=== PATIENT | male | born 1990 | race Caucasian/White ===

== ENCOUNTER 2016-09-22 21:54 | Observation (INO) | payer OTHER ==
[~2016-09-22] VITALS: Ht 175.3 cm; Wt 56.7 kg
[2016-09-22 22:03] VITALS: BP 166/102; PULSE 69; RESP 16; O2SAT 98
[2016-09-22] MEDS ORDERED: Ondansetron 2 mg/mL 2 mL Inj ONE (23:08)
[2016-09-22 23:15] VITALS: BP 128/70; PULSE 67; RESP 18; O2SAT 97
--- NOTE | 2016-09-22 23:17 | ED.REPORT ---
HPI-Dental/Mouth Prob Date of Service Sep 22, 2016 ED Provider: Dr. Michel Murphy M.D. The patient is a healthy 26 year old male who presents to the ED accompanied by his family with diffuse dental pain onset three days ago. The pain is exacerbated with movement of his jaw. Associated symptoms include facial swelling, neck swelling, and nausea. The patient denies shortness of breath or other symptoms. He had a left lower molar pulled one month ago. The patient was seen at [facility] since onset and was prescribed an antibiotic and Vicodin for a dental infection. His symptoms have worsened since. Nursing Notes Stated Complaint: EXTREME JAW AND DENTAL PAIN Chief Complaint: Dental Nursing Notes Reviewed: Yes Allergies: Coded Allergies: No Known Allergies (Unverified , 09/23/16) General Time Seen by MD: 23:17 Chief Complaint Other (Dental Pain) Hx Obtained From: Patient, Other family... Arrived By: Walk-in Onset Occurred: 3 days ago Symptom Duration: Since onset Quality: Painful (Diffuse dental pain) Severity: Current: Moderate Severity: Maximum: Moderate Exacerbated by: Movement (Of jaw) Pertinent Negative: Relieved by nothing Recent Healthcare: Recent doctor visit Past Medical History Past Medical History None reported Past Surgical History None reported Smoking History Unknown if Ever Smoker Social History Other Social History: Good social support Ambulatory Status Independent Review of Systems Review of Systems Note: + Diffuse dental pain, facial swelling, neck swelling Constitutional: Denies: Fever Respiratory: Denies: Non-productive cough, Shortness of breath GI: Reports: Nausea, Denies: Diarrhea, Vomiting Complete sys rev & neg: except as marked. Physical Exam Physical Exam Notes: Initial Vital Signs Vital Signs (First) Date Time Temp Pulse Resp B/P Pulse Ox O2 Delivery O2 Flow Rate FiO2 09/22/16 22:03 36.9 69 16 166/102 98 Room Air Initial VS: Reviewed Head / Eyes: Atraumatic, Normocephalic Respiratory: Breath sounds normal, Clear to auscultation, No respiratory distress Cardiovascular: Regular rate & rhythm, Heart sounds normal Skin: Warm, Dry, No cyanosis Neurologic: Alert, Oriented, Nonfocal Psychiatric: Mood/affect normal, Behavior normal, Normal thought content ENT: Airway patent Mouth: Positive: Pooling of secretions Bilateral facial swelling, tenderness, induration up around line of jaw to ears Tender, indurated area on anterior chin No crepitus, fluctuance Unable to open mouth fully - only up to 1cm excursion Strangled voice Neck: Supple, Full range of motion, No adenopathy General/Constitutional: Awake, Alert Interpretation & Diagnostics CT NECK SOFT TISSUE W/ IV CONTRAST: CONCLUSION: Periapical lucency about the right and left medial incisors; 2 cm lobulated ring-enhancing fluid collection just anterior to the mandibular symphysis, indicating a periodontal abscess, with extensive surrounding fat stranding with overlying skin thickening. No extension of the abscess into the tongue or submandibular space identified. Chronic left maxillary sinusitis. Findings discussed with Dr. Murphy at 09/23/2016 1:07:14 AM PDT Report transmitted to the ED by radiologist Miguel Duran M.D. at 09/23/2016 - 1:07:18 AM PDT Lab Results Interpretation Result Diagram: 09/23/16 0549 09/23/16 0549 Test 09/22/16 01:19 09/22/16 23:30 Urine Color Yellow (YELLOW) Urine Appearance Clear (CLEAR,HAZY) Urine pH 6.5 (5.0-8.0) Urine Specific [place] 1.004 (1.003-1.035) Urine Protein Negativemg/dL (NEG,TRACE) Urine Glucose (UA) Negativemg/dL (NEGATIVE) Urine Ketones Negativemg/dL (NEGATIVE) Urine Occult Blood Trace (NEGATIVE) Urine Nitrite Negative (NEGATIVE) Urine Bilirubin Negative (NEGATIVE) Urine Urobilinogen Normalmg/dL (NORMAL) Urine Leukocyte Esterase Negative (NEGATIVE) Urine RBC 0-2/hpf (0-2) Urine WBC 0-5/hpf (0-5) Urine Epithelial Cells Occasional/hpf (NONE-MOD) Urine Crystals None seen (NONE SEEN) Urine Bacteria None/hpf (NONE-FEW) Urine Hyaline Casts None/lpf (NONE) Urine Granular Casts None seen (NONE SEEN) Urine Waxy Casts None seen (NONE SEEN) Urine Red Blood Cell Casts None seen (NONE SEEN) Urine White Blood Cell Casts None seen (NONE SEEN) Urine Mucus None seen (None Seen) Urine Trichomonas None seen (NONE SEEN) Urine Yeast None (NONE SEEN) Urinalysis Comment None Urine Culture Reflexed Not indicated Prothrombin Time 10.6sec (8.1-12.5) Prothromb Time International Ratio 0.99ratio Activated Partial Thromboplast Time 33.1sec (22.8-33.0) Phosphorus Level 4.3mg/dL (2.5-4.9) Magnesium Level 2.0mg/dL (1.6-2.6) Total Bilirubin 0.5mg/dL (0.0-1.2) Aspartate Amino Transf (AST/SGOT) 34U/L (0-50) Alanine Aminotransferase (ALT/SGPT) 34U/L (0-44) Alkaline Phosphatase 72U/L (25-150) Total Protein 7.6g/dL (6.4-8.4) Albumin 4.2g/dL (3.4-5.0) Procalcitonin 0.18ng/mL (0.00-0.08) Hold Rosen Top Tube Received (Received) X-Ray Chest Interpretation Chest Xray Interpretation: Negative View: Portable, 1 view Interpretation / Wet Read by: Wet read ED physician Re-Eval/Medical Decision Med Decision/Clinical Course Twenty 40 progressive pain and swelling with a dental abscess. Now his significant trismus and is unable to eat or drink can barely able open his mouth. This is improved after Decadron and IV antibiotics here. CT does not show anything within the ring of the mandible and no involvement of the floor the mouth or tongue. There is an odontogenic abscess anteriorly. The bit now observation status for ongoing steroids, IV clindamycin, and consider drainage. We will ultimately need extraction in the area. Re-Evaluation/Progress : Time of Eval: 01:06 Patient Status: Condition improved Re-Evaluation/Progress Note: Discussed with patient CT, x-ray, and lab results, diagnosis, and plan for admit. Patient agrees with plan for care and all questions were addressed. Consultation : Referral / Consult Name: Maria De Jesus Brooke DO Consulted With: Hospitalist Call Returned at: 01:40 Auto Heater Mechanic: Agrees with eval, Agrees with plan, Accepts admit Counseled Regarding: Diagnosis, Lab results, Need for admission Discharge & Departure Primary Impression: Dental abscess Disposition: ADMITTED TO HOSPITAL Discharge Condition All VS Reviewed: Yes Condition: Improved Referrals: Taurus Hernandez DO (PCP) Scribe Attestation Portions of this note were transcribed by Zelda De Dios. I, Dr. Murphy, personally performed the history, physical exam, and medical decision-making; I reviewed and confirmed the accuracy of the information in the transcribed note. Signed by: Norris Justin, 09/23/2016, 03:10 copies to: Taurus Hernandez Christopher W MD Sep 22, 2016 23:17 ZELDA DE DIOS Sep 22, 2016 23:25 2.0mg/dL (1.6-2.6) Total Bilirubin 0.5mg/dL (0.0-1.2) Aspartate Amino Transf (AST/SGOT) 34U/L (0-50) Alanine Aminotransferase (ALT/SGPT) 34U/L (0-44) Alkaline Phosphatase 72U/L (25-150) Total Protein 7.6g/dL (6.4-8.4) Albumin 4.2g/dL (3.4-5.0) Procalcitonin 0.18ng/mL (0.00-0.08) Hold Rosen Top Tube Received (Received) X-Ray Chest Interpretation Chest Xray Interpretation: Negative View: Portable, 1 view Interpretation / Wet Read by: Wet read ED physician Re-Eval/Medical Decision Re-Evaluation/Progress : Time of Eval: 01:06 Patient Status: Condition improved Re-Evaluation/Progress Note: Discussed with patient CT, x-ray, and lab results, diagnosis, and plan for admit. Patient agrees with plan for care and all questions were addressed. Consultation : Referral / Consult Name: Maria De Jesus Brooke DO Consulted With: Hospitalist Call Returned at: 01:40 Auto Heater Mechanic: Agrees with eval, Agrees with plan, Accepts admit Counseled Regarding: Diagnosis, Lab results, Need for admission Discharge & Departure Primary Impression: Dental abscess Disposition: ADMITTED TO HOSPITAL Discharge Condition All VS Reviewed: Yes Condition: Improved Referrals: Taurus Hernandez DO (PCP) Norris Attestation Portions of this note were transcribed by Zelda De Dios. I, Dr. Murphy, personally performed the history, physical exam, and medical decision-making; I reviewed and confirmed the accuracy of the information in the transcribed note. Signed by: Norris Justin, 09/23/2016, 03:10 copies to: Taurus Hernandez Christopher W MD Sep 22, 2016 23:17 ZELDA DE DIOS Sep 22, 2016 23:25
[2016-09-22] MEDS ORDERED: Dexamethasone 10 mg/mL Inj IVPUSH ONE (23:25)
[2016-09-22] MEDS ORDERED: Piperacillin-Tazo 3.375 Gm Inj 3.375 GM in Dextrose 5% Minibag Plus 50 ML IV ONE (23:25)
[2016-09-22] MEDS ORDERED: Ondansetron 2 mg/mL 2 mL Inj IVPUSH ONE (23:25)
[2016-09-22 23:30] VITALS: BP 137/72; PULSE 69; RESP 16; O2SAT 99
[2016-09-22] MEDS ORDERED: HYDROmorphone 1 mg/mL Inj IVPUSH PRN (23:55)
[2016-09-23] VITALS (7 sets, daily range): BP systolic 102–119; BP diastolic 44–65; PULSE 58–78; RESP 12–17; O2SAT 96–98
[2016-09-23] LABS: INR 0.99 ratio
[2016-09-23] MEDS: 0.9% Sodium Chloride 1,000 ML IV PRN ×2 (00:04→00:17)
[2016-09-23 00:08] LABS: BASOPHILS % (AUTO) 0.2 % (0-3); EOSINOPHILS % (AUTO) 1.7 % (0-5); MONOCYTES % (AUTO) 11.9 % (4-12); Mean Corpuscular Hemoglobin 30.8 pg (27.0-35.0); Mean Corpuscular Volume 90 fL (81-100); NEUTROPHILS % (AUTO) 75.6 % (40-74); Platelet Count 218 bil/L (150-400)
[2016-09-23 00:10] LABS: Phosphorus 4.3 mg/dL (2.5-4.9)
[2016-09-23 01:32] LABS: APPEARANCE,URINE CLEAR (CLEAR,HAZY); COLOR,URINE YELLOW (YELLOW)
[2016-09-23 01:33] LABS: OCCULT BLOOD,URINE TRACE (NEGATIVE); PH,URINE 6.5 (5.0-8.0); UROBILINOGEN,URINE NORMAL (NORMAL)
[2016-09-23] MEDS ORDERED: Lactated Ringer's 1,000 ML IV SCH (02:39)
[2016-09-23] MEDS ORDERED: Ondansetron 2 mg/mL 2 mL Inj IVPUSH PRN (02:40)
--- NOTE | 2016-09-23 03:00 | NUR ---
Admit Received report from Joaquin OROPEZA RN @ 0120 patient just now arrived floor via RN accompanied w/girlfriend, admit Dx dental abscess , per report he had had tooth extraction a month ago and developed abscess which he was on abx for, came to ED d/t unrelieved pain from Vicodin, upon access cannot visualize abscess and patient states "felt something pop in mouth and pressure and pain relieved no other pertinent medical Hx or issues.Admit complete w/exception of med rec which was only Vicodin, Amoxicillin, and one can't name other takes no RX prior.
[2016-09-23] MEDS ORDERED: Dexamethasone 4 mg/mL Inj IVPUSH ONE (04:30)
--- NOTE | 2016-09-23 05:10 | PCM.HPMED ---
Subjective Date of Service Sep 23, 2016 Primary Provider: Admitting Physician: Maria De Jesus Brooke DO Primary Care Physician: Taurus Hernandez DO Attending Physician: Maria De Jesus Brooke DO Admit Status: From the Emergency Department Chief Complaint: dental pain History of Present Illness: 26yoM with minimal past medical history admitted with concern for failure of outpatient treatment of dental abscess. Patient states the he began having difficulties with his mouth on Tuesday 09/19. He was seen by his outpatient provider who prescribed amoxicillin and vicodin and sent patient home. In the subsequent days Mr. Reis endorses chills, worsening pain and discomfort in his mouth with increasing swelling and difficulties swallowing. Immediately following presentation to [facility] patient endorses drainage from abscess stating "it popped open". ENT was contacted following hospitalist notification for admission. Review of Systems: complete review of systems obtained. positive as per hpi otherwise negative. Allergies Coded Allergies: No Known Allergies (Unverified , 09/23/16) Home Medications amoxicillin vicodin ibuprofen PMH None Surgical History None Family History Uncle with recurrent dental abscess Mother with MS Father obese Social History Hx Alcohol Use: Yes Alcoholic Drinks Per Day: occasional Hx Substance Use: No Smoking Status: Unknown if Ever Smoker Exam Vital Signs Vital Sign - Last Date Time Temp Pulse Resp B/P Pulse Ox O2 Delivery O2 Flow Rate FiO2 09/23/16 03:30 36.5 62 17 112/62 96 Room Air Intake and Output 09/22/16 09/22/16 09/23/16 Cumulative From/Thru 15:00 23:00 07:00 09/22/16 22:03 - 09/23/16 03:08 Intake Total 2000 ml 2000 ml Balance 2000 ml 2000 ml Intake IV Total 2000 ml 2000 ml Exam General: Alert, Oriented X3, Cooperative, No acute Distress Eyes: PERRLA, Scleral Anicteric Mouth: Mouth Normal, Mucous Membranes Moist/Filer, left edema submandibular and surrounding chin, unable to visualize area of abscess d/t swelling Neck: Supple, no Thyromegaly, trachea central. Chest & Lungs: clear to auscultation bilateral, no wheezes, rales, rhonchi, good resp effort Cardiovascular: Normal S1, Normal S2, No Rubs/Gallops/murmur, regular rate and rhythm(No JVD, no peripheral edema) Pulses: Radial (present and equal), Dorsalis Pedi (present and equal) Abdomen: Soft, Non-tender, Non-distended, Normoactive bowel tones. Musculoskeletal: Unremarkable. Normal range of motion, no swollen or erythematous joints, mouth as above Extremities: No edema, no cyanosis, no clubbing. Skin: No rashes. Warm and dry, no erythematous areas Neurological: Grossly neurologically intact, has generalized weakness, Normal Speech, Sensation Intact Lymphatic: Lymph nodes Axillary not palpable. Lab and Diagnostics Result Diagram: 09/22/16232909/22/162329 X-Rays, CTs and MRIs CT NECK SOFT TISSUE W/ IV CONTRAST: CONCLUSION: Periapical lucency about the right and left medial incisors; 2 cm lobulated ring-enhancing fluid collection just anterior to the mandibular symphysis, indicating a periodontal abscess, with extensive surrounding fat stranding with overlying skin thickening. No extension of the abscess into the tongue or submandibular space identified. Chronic left maxillary sinusitis. Findings discussed with Dr. Murphy at 09/23/2016 1:07:14 AM PDT Report transmitted to the ED by radiologist Miguel Duran M.D. at 09/23/2016 - 1:07:18 AM PDT Assessment & Plan 26yoM with minimal past medical history admitted with concern for failure of outpatient treatment of dental abscess. Dental abscess, acute, POA -patient not meeting SIRs / sepsis criteria -patient was given amoxicillin as an outpatient with worsening symptoms -CT scan with findings of dental abscess -piperacillin-tazobactam and dexamethasone given in ED with some improvement -continue dexamethasone 4mg TID, start clindamycin -ENT consulted by ED following admission, AM team to confirm consultation Leukocytosis, acute, POA -secondary to dental abscess -treatment as above Pain Evaluation: Adequate Pain Control GI Prophylaxis: Not indicated VTE Prophylaxis: Other (ambulate TID) Resuscitation Status: CPR: Attempt Resuscitation Maria De Jesus Brooke DO Sep 23, 2016 05:10
[2016-09-23] MEDS ORDERED: Polyethylene Glycol (PEG) 17 Gm Powder PO PRN (05:15)
[2016-09-23 06:22] LABS: BASOPHILS % (AUTO) 0.1 % (0-3); EOSINOPHILS % (AUTO) 0.2 % (0-5); Mean Corpuscular Volume 88.2 fL (81-100); NEUTROPHILS % (AUTO) 91.9 % (40-74); Platelet Count 203 bil/L (150-400)
--- NOTE | 2016-09-23 06:29 | DRSVH ---
PROCEDURE: CT NECK SOFT TISSUES WITH CONTRAST ([id number]) INDICATIONS: 26 year-old male with lower jaw swelling for 5 days. TECHNIQUE: After the administration of intravenous contrast, 3.0 mm axial sections acquired from the sella to th e aortic arch. Additional oblique axial 3.0 mm sections acquired through the pharynx. 3 mm thick co kojo reformats were generated. For radiation dose reduction, the following was used: automated exp osure control. COMPARISON: None. FINDINGS: Preliminary interpretation rendered by [facility]. Image quality: Metallic streak artifact from dental fillings obscures adjacent bony and soft tissues. Lymph nodes: Bilateral prominent submandibular lymph nodes are present. More inferiorly, no enlarged jugular chain lymph nodes identified. Vessels: Visualized vasculature appears patent. Neck spaces: There is right greater than left enlargement of the tonsillar pillars with scattered in ternal gas. No rim-enhancing fluid collections to suggest emmy tonsillar abscess. The vocal cords, f alse vocal cords, pyriform sinuses, epiglottis, vallecula, and tongue base all appear normal. On ser ies 2 image 33, an irregular rim-enhancing fluid collection is situated superficial to the right ante rior paramedian mandible, with intraosseous extension. There is significant surrounding inflammatory fat stranding. No soft tissue gas. Glands: The parotid and submandibular glands appear normal. Thyroid gland is normal in size. Miscellaneous: Visualized brain and orbits appear normal. Lung apices appear clear. Superficial so ft tissues appear normal. Bones: An os odontoideum is present. There is asymmetric opacification of the left maxillary sinus, s tatus post remote maxillary sinusotomy. Other visualized sinuses and mastoids appear clear. IMPRESSION: 1. Findings consistent with 1.8 x 1.7 cm right anterior paramedian periodontal abscess. 2. Right greater than left tonsillar pillar enlargement with internal soft tissue gas, consistent wit h infectious process. No emmy tonsillar abscess at this time. 3. Bilateral prominent submandibular lymph nodes, presumably secondary to periodontal infectious proc ess. 4. 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 5. Findings consistent with chronic left maxillary sinusitis, status post remote maxillary sinusotomy . Os odontoideum finding was not noted on preliminary [facility] report. Dictated by: Warren Jones M.D. on 09/23/2016 at 6:11 Approved by: Warren Jones M.D. on 09/23/2016 at 6:27
--- NOTE | 2016-09-23 07:26 | DRSVH ---
PROCEDURE: X-RAY CHEST ONE VIEW, PORTABLE ([id number]) INDICATIONS: 26-year-old male with extreme joint pain and swelling. TECHNIQUE: One view of the chest was acquired. COMPARISON: None. FINDINGS: Surgical changes and devices: None. Lungs and pleura: No pleural effusions or pneumothorax. Lungs are clear. Mediastinum: Mediastinal contours appear normal. No pneumomediastinum. Heart size is normal. Bones and chest wall: No suspicious bony lesions. Overlying soft tissues appear unremarkable. IMPRESSION: Normal single view chest. Dictated by: Warren Jones M.D. on 09/23/2016 at 7:23 Approved by: Warren Jones M.D. on 09/23/2016 at 7:24
[2016-09-23] MEDS ORDERED: Clindamycin Inj 600 MG in IV Premix 1 EACH IV SCH (08:30)
--- NOTE | 2016-09-23 12:06 | NUR ---
Status Pt has not complained of pain or nausea this shift and is resting comfortably in bed. States that last night he felt a "pop" in his mouth and could taste drainage. Pain subsided. Able to eat and drink w/o issue this am. Up ad dallin. Will continue to monitor.
--- NOTE | 2016-09-23 12:22 | PCM.DIMED ---
Discharge Instructions Date of Service Sep 23, 2016 Dates of Hospitalization Sep 23, 2016 at 01:24 Discharge Diagnosis Discharge Diagnosis dental abscess Diet Discharge Diet: No restrictions Activity Discharge Activity: No restrictions Call your provider Call your provider for: Fever or Chills Patient Instructions Patient Instructions you need to see a dentist ALONDRA for definitive follow up, not clear if this is root canal vs extraction or other. Maxillofacial/oral surgeon surgery not available @ [facility]. If this reccurs consider [facility] (I would call to see if maxillofacial/oral surgeon is available/production counter. Follow-up plan stay on antibiotics and antiinflammatory (clinda/dexamethasone) till seen by dentist/maxillo facial surgeon Dylon Davis MD Sep 23, 2016 12:22
[2016-09-23] MEDS ORDERED: CLIN-78 PO (12:29)
[2016-09-23] MEDS ORDERED: LACT1TAB19 PO (12:29)
[2016-09-23] MEDS ORDERED: DXM4T PO (12:29)
[2016-09-23] MEDS ORDERED: IBUP-1827 PO (12:29)
[2016-09-23] MEDS ORDERED: CLIN-77 PO (12:29)
[2016-09-23] MEDS ORDERED: HYDR-4003 PO (12:29)
[2016-09-23] MEDS ORDERED: OMEP40CA36 PO (12:29)
--- NOTE | 2016-09-23 12:46 | NUR ---
Social Work: Screening / D/C Data: Pt is a 26 y/o male admitted for dental abscess. Pt's PCP is Dr Hernandez, pt's insurance is [employer]. Readmit score not listed. Pt discussed in rounds. D/C orders are in. requested [employer] CREAM VENDOR set up dental appointment for pt at [facility]. [facility] does not have any appointments available next week but states pt can walk in M-F starting at 7:30am for any no shows. Appointment made for August, at 1:45pm at the [facility]. RN placed info in pt's d/c notes. No further d/c planning needs at this time. ICE CREAM VENDOR will continue to follow if needs arise. Assessment: Pt who is independent at baseline. Plan: Pt will d/c home via POV today. Appointment at [facility] 09/27 at 1:45pm. No further d/c planning needs at this time. ICE CREAM VENDOR will continue to follow if needs arise. KARINA Curiel
--- NOTE | 2016-09-23 13:25 | NUR ---
Discharge Pt discharged ambulatory with girlfriend and mom at 1310. All discharge paperwork and instructions reviewed. Pt verbalized understanding of all new medications and when/how to take. Verbalized understanding of appointment information with jaimee colvinett 09/27. All belongings with pt on d/c. Pt stable and w/o reports of any pain.
--- NOTE | 2016-09-23 16:17 | PCM.DC.MED ---
Discharge Summary Date of Service Sep 23, 2016 Dates of Hospitalization Date of Hospital Admission Sep 23, 2016 at 01:24 Date of Discharge: Sep 23, 2016 Providers: Admitting Physician: Eagle Davis MD Primary Care Physician: Taurus Hernandez DO Attending Physician: Eagle Davis MD Diagnosis at Time of Discharge Diagnosis at Time of Discharge dental abscess Consultations None Procedures XRay, CTs & MRIs CT NECK SOFT TISSUE W/ IV CONTRAST: CONCLUSION: Periapical lucency about the right and left medial incisors; 2 cm lobulated ring-enhancing fluid collection just anterior to the mandibular symphysis, indicating a periodontal abscess, with extensive surrounding fat stranding with overlying skin thickening. No extension of the abscess into the tongue or submandibular space identified. Chronic left maxillary sinusitis. Findings discussed with Dr. Murphy at 09/23/2016 1:07:14 AM PDT Report transmitted to the ED by radiologist Miguel Duran M.D. at 09/23/2016 - 1:07:18 AM PDT Brief History 26yoM with minimal past medical history admitted with concern for failure of outpatient treatment of dental abscess. Patient states the he began having difficulties with his mouth on Tuesday 09/19. He was seen by his outpatient provider who prescribed amoxicillin and vicodin and sent patient home. In the subsequent days Mr. Reis endorses chills, worsening pain and discomfort in his mouth with increasing swelling and difficulties swallowing. Immediately following presentation to [facility] patient endorses drainage from abscess stating "it popped open". ENT was contacted following hospitalist notification for admission. Hospital Course 26yoM with minimal past medical history admitted with concern for failure of outpatient treatment of dental abscess. Dental abscess, acute, POA -continue dexamethasone 4mg TID, start clindamycin -Spoke to on-call ENT he had not heard of this patient. We discussed the situation and given that there is no abscess to drain as it seems to have drained itself there is not much more to be done and patient requires either a dentist or oral surgeon to provide definitive care. Patient is eating and drinking so I put the patient on oral clindamycin and dexamethasone renewed his ibuprofen and Vicodin, he was advised he could go to [facility] for walk-in 7:30 AM 09/25 he has one scheduled in [place] on Wednesday 09/27. Patient feels that this is a reasonable plan so were discharging him. He is able to eat and drink his swallow was not apparent and the bulk of his abscess seems to have drained itself according to him. Leukocytosis, acute, POA, WBC 13.4 stable not indication to keep the patient in the hospital. -secondary to dental abscess -treatment as above Exam Vital Signs (Last) Date Time Temp Pulse Resp B/P Pulse Ox O2 Delivery O2 Flow Rate FiO2 09/23/16 12:10 36.5 58 12 110/62 98 Room Air Exam General: Alert, Oriented X3, Cooperative, No acute Distress Eyes: Open, conjunctivae clear, pupils equal Mouth: Mouth Normal, Mucous Membranes Moist/[place], left edema submandibular and surrounding chin, unable to visualize area of abscess d/t swelling Neck: Supple, no Thyromegaly, trachea central. Chest & Lungs: Normal resp effort Cardiovascular: Normal rate Abdomen: Scaphoid Musculoskeletal: Normal range of motion, no swollen or erythematous joints, no deformity Extremities: No edema, no cyanosis, no clubbing. Skin: No rashes. Warm and dry, no erythematous areas Neurological: Grossly neurologically intact, has generalized weakness, Normal Speech, extremities moving 4 Psych: Pleasant and appropriate Test 09/22/16 01:19 09/22/16 23:30 09/23/16 05:49 Urine Color Yellow (YELLOW) Urine Appearance Clear (CLEAR,HAZY) Urine pH 6.5 (5.0-8.0) Urine Specific [place] 1.004 (1.003-1.035) Urine Protein Negativemg/dL (NEG,TRACE) Urine Glucose (UA) Negativemg/dL (NEGATIVE) Urine Ketones Negativemg/dL (NEGATIVE) Urine Occult Blood Trace (NEGATIVE) Urine Nitrite Negative (NEGATIVE) Urine Bilirubin Negative (NEGATIVE) Urine Urobilinogen Normalmg/dL (NORMAL) Urine Leukocyte Esterase Negative (NEGATIVE) Urine RBC 0-2/hpf (0-2) Urine WBC 0-5/hpf (0-5) Urine Epithelial Cells Occasional/hpf (NONE-MOD) Urine Crystals None seen (NONE SEEN) Urine Bacteria None/hpf (NONE-FEW) Urine Hyaline Casts None/lpf (NONE) Urine Granular Casts None seen (NONE SEEN) Urine Waxy Casts None seen (NONE SEEN) Urine Red Blood Cell Casts None seen (NONE SEEN) Urine White Blood Cell Casts None seen (NONE SEEN) Urine Mucus None seen (None Seen) Urine Trichomonas None seen (NONE SEEN) Urine Yeast None (NONE SEEN) Urinalysis Comment None Urine Culture Reflexed Not indicated Prothrombin Time 10.6sec (8.1-12.5) Prothromb Time International Ratio 0.99ratio Activated Partial Thromboplast Time 33.1sec (22.8-33.0) Phosphorus Level 4.3mg/dL (2.5-4.9) Magnesium Level 2.0mg/dL (1.6-2.6) Total Bilirubin 0.5mg/dL (0.0-1.2) Aspartate Amino Transf (AST/SGOT) 34U/L (0-50) Alanine Aminotransferase (ALT/SGPT) 34U/L (0-44) Alkaline Phosphatase 72U/L (25-150) Total Protein 7.6g/dL (6.4-8.4) Albumin 4.2g/dL (3.4-5.0) Procalcitonin 0.18ng/mL (0.00-0.08) Hold Rosen Top Tube Received (Received) White Blood Count 13.1th/mm3 (3.8-10.1) Red Blood Count 4.68mil/mm3 (4.40-5.80) Hemoglobin 14.5g/dL (13.8-17.2) Hematocrit 41.3% (41.0-50.0) Mean Corpuscular Volume 88.2fL (81-100) Mean Corpuscular Hemoglobin 31.0pg (27.0-35.0) Mean Corpuscular Hemoglobin Concent 35.1% (32.0-37.0) Red Cell Distribution Width 12.3% (12.3-15.4) Platelet Count 203bil/L (150-400) Neutrophils (%) (Auto) 91.9% (40-74) Lymphocytes (%) (Auto) 4.6% (14-46) Monocytes (%) (Auto) 3.0% (4-12) Eosinophils (%) (Auto) 0.2% (0-5) Basophils (%) (Auto) 0.1% (0-3) Sodium Level 136mEq/L (134-144) Potassium Level 4.9mEq/L (3.5-5.2) Chloride Level 101mEq/L (97-108) Carbon Dioxide Level 21mmol/L (18-29) Blood Urea Nitrogen 14mg/dL (6-20) Creatinine 0.74mg/dL (0.76-1.27) Estimat Glomerular Filtration Rate 138mL/min (>59) Glucose Level 151mg/dL (60-99) Calcium Level 9.4mg/dL (8.5-10.1) Microbiology Results Blood culture still pending from admission Discharge Medications Discharge Medications Clindamycin (Clindamycin) 150 Mg Capsule 150 MG PO QID Prescribed by: EAGLE DAVIS MD Clindamycin (Clindamycin) 300 Mg Capsule 300 MG PO QID Prescribed by: EAGLE DAVIS MD Dexamethasone (Dexamethasone) 4 Mg Tablet 4 MG PO q8 Prescribed by: EAGLE DAVIS MD Lactobacillus Acidophilus (Acidophilus) 1 Each Tablet 2 EACH PO DAILY Prescribed by: EAGLE DAVIS MD Omeprazole (Omeprazole) 40 Mg Capsule.dr 40 MG PO DAILY Prescribed by: EAGLE DAVIS MD As needed Hydrocodone-Acetaminophen 5-325 mg (Hydrocodone-Acetaminophen 5-325 mg) 1 Each Tablet 1-2 TABLET PO Q4H PRN PRN For Pain Prescribed by: EAGLE DAVIS MD Ibuprofen (Ibuprofen) 600 Mg Tablet 600 MG PO QID PRN PRN For Pain Prescribed by: EAGLE DAVIS MD Followup Plan Disposition: To home. Follow-up Dental clinic 09/25 or 09/27 as outlined in hospital course Follow-up plan stay on antibiotics and antiinflammatory (clinda/dexamethasone) till seen by dentist/maxillo facial surgeon Discharge Diet: No restrictions Discharge Activity: No restrictions Patient Instructions you need to see a dentist ALONDRA for definitive follow up, not clear if this is root canal vs extraction or other. Maxillofacial/oral surgeon surgery not available @ [facility]. If this reccurs consider [place] (I would call to see if maxillofacial/oral surgeon is available/instructional technology director. Time spent Greater than 30 minutes Attending Statement Follow-up Dental clinic 09/25 or 09/27 as outlined in hospital course Eagle Davis MD Sep 23, 2016 16:16
== END 2016-09-23 13:10 | disposition home or self-care (01) ==
LOC: SED 21:54 → MOC 09-23 01:24 → INTOOBSV 09-23 01:24 → MOC 09-23 02:53
PROVIDERS: ADMIT Hospitalist; ATTEND Hospitalist
DX: K04.7 Periapical abscess without sinus (principal); D72.829 Elevated white blood cell count, unspecified
CPT/HCPCS: 36415; 70491; 71010; 80048; 80053; 81000; 83735; 84100; 84145; 85025; 85610; 85730; 87040; 96361; 96365; 96366; 96375; 96376; 99285; G0378; J1100; J2543; J7030; J7120; Q9967